=== PATIENT | female | born 1950 | race Caucasian/White ===

== ENCOUNTER 2016-12-07 17:30 | Emergency (ER) | payer OTHER ==
[~2016-12-07] VITALS: Wt 72.1 kg
[2016-12-07] MEDS ORDERED: DIPHTH/TET/ACEL PERTUSS (ADULT) 0.5 ML VIAL IM* ONE (18:00)
[2016-12-07] MEDS ORDERED: CLIN-73 PO (18:35)
[2016-12-07] MEDS ORDERED: IBUP-1542 PO (18:36)
--- NOTE | 2016-12-07 18:46 | ERD ---
ER Documentation Chief Complaint Date/Time DATE: 12/07/16 TIME: 18:40 Chief Complaint RIGHT INDEX FINGER DOG BITE YESTERDAY. BLEEDING CONTROLLED. HPI Patient is a 66-year-old female who presents to the emergency department with dog bite wound to her right index finger. She states that she was playing with her daughter's dog trying to grab the bone out of his mouth when her daughter's dog actually bit her. She believes that her daughter's dog is vaccinated. Patient's daughter's dog does live indoors. The injury occurred yesterday. Patient reports swelling and erythema to her left index finger. Patient denies any fevers, chills, nausea, vomiting, chest pain or shortness of breath or loss of consciousness. Patient does not recall her last tetanus vaccination. ROS All systems reviewed and are negative except as per history of present illness. Medications Home Meds Active Scripts Ibuprofen* (Motrin*) 600 Mg Tab, 600 MG PO Q6, #30 TAB Prov:YADI IYER PA-C 12/07/16 Clindamycin Hcl* (Clindamycin Hcl*) 300 Mg Capsule, 300 MG PO TID for 10 Days, CAP Prov:YADI IYER PA-C 12/07/16 Allergies Allergies: Coded Allergies: Penicillins (Verified Allergy, Unknown, 12/07/16) PMhx/Soc Medical and Surgical Hx: pt denies Medical Hx, pt denies Surgical Hx Physical Exam Vitals Vital Signs Date Time Temp Pulse Resp B/P Pulse Ox O2 Delivery O2 Flow Rate FiO2 12/07/16 17:34 98.4 85 21 165/89 98 Physical Exam GENERAL: Well-developed, well-nourished female. Appears in no acute distress. HEAD: Normocephalic, atraumatic. EYES: Pupils are equally reactive bilaterally. EOMs grossly intact. No conjunctival erythema. ENT: Moist mucous membranes. No uvula deviation. No kissing tonsils. NECK: Supple. No meningismus. Normal range of motion of the neck. LUNG: Clear to auscultation bilaterally. No rhonchi, wheezing, rales or coarse breath sounds. HEART: Regular rate and rhythm. No murmurs, rubs or gallops. EXTREMITIES: Equal pulses bilaterally. No peripheral clubbing, cyanosis or edema. No unilateral leg swelling. NEUROLOGIC: Alert and oriented. Moving all four extremities without any difficulty. Normal speech. Steady gait. SKIN: Normal color. Warm and dry. 1 cm puncture wound noted on the patient's proximal aspect of her right index finger. Erythema and swelling noted over the patient's MCP joint. No lymphatic streaking noted. Decreased range of motion of the patient's first digit secondary to pain however able to bend at DIP and PIP joint. Results 24 hrs Current Medications Medications (Trade) Dose Ordered Sig/Holly Route PRN Reason Start Time Stop Time Status Last Admin Dose Admin Diphtheria/ Tetanus/Acell Pertussis (Adacel) 0.5 ml ONCE ONCE IM* 12/07/16 18:00 12/07/16 18:01 DC 12/07/16 18:10 Procedures/MDM MEDICAL DECISION MAKING: Patient is a 66-year-old female who presents to the emergency department with right index finger pain status post dog bite yesterday. Patient was bit by her daughter's dog. Vital signs were reviewed. Patient is afebrile. Patient was not hypoxic. Patient was hemodynamically stable. Patient's wound was cleansed by agricultural technical officer. The affected area was marked and dated. Patient was given tetanus vaccination here in the emergency department. At this time, the patient's presentation is most consistent with dog bite. Given that patient does have a penicillin allergy, patient will be prescribed clindamycin. Low suspicion for deep space infection or abscess. Low suspicion for flexor tenosynovitis at this time. PRESCRIPTION: Clindamycin, ibuprofen DISCHARGE: At this time, patient is stable for discharge and outpatient management. She was advised to return the emergency department in 2 days for wound recheck. Patient was advised to return sooner if the area of erythema is spreading up her arm. Patient was advised to return sooner if she had any swelling, increased redness, fevers, chills, nausea, vomiting. I have instructed the patient to promptly return to the ER for any new or worsening symptoms including increased pain, fever, nausea, vomiting, weakness or LOC. The patient and/or family expressed understanding of and agreement with this plan. All questions were answered. Home care instructions were provided. Departure Diagnosis: Primary Impression: Dog bite Encounter type: initial encounter Qualified Code: W54.0XXA - Dog bite, initial encounter Condition: Stable Patient Instructions: Dog Bite Referrals: COMM[facility] YOU HAVE RECEIVED A MEDICAL SCREENING EXAM AND THE RESULTS INDICATE THAT YOU DO NOT HAVE A CONDITION THAT REQUIRES URGENT TREATMENT IN THE EMERGENCY DEPARTMENT. FURTHER EVALUATION AND TREATMENT OF YOUR CONDITION CAN WAIT UNTIL YOU ARE SEEN IN YOUR DOCTORS OFFICE WITHIN THE NEXT 1-2 DAYS. IT IS YOUR RESPONSIBILITY TO MAKE AN APPOINTMENT FOR FOLOW-UP CARE. IF YOU HAVE A PRIMARY DOCTOR --you should call your primary doctor and schedule an appointment IF YOU DO NOT HAVE A PRIMARY DOCTOR YOU CAN CALL OUR PHYSICIAN REFERRAL HOTLINE AT IF YOU CAN NOT AFFORD TO SEE A PHYSICIAN YOU CAN CHOSE FROM THE FOLLOWING [facility] [address] [facility] [address] [facility] [facility] [address] [facility] [address] [facility] [facility] [address] [facility]. [facility] [address] [facility]. [facility] YOU HAVE RECEIVED A MEDICAL SCREENING EXAM AND THE RESULTS INDICATE THAT YOU DO NOT HAVE A CONDITION THAT REQUIRES URGENT TREATMENT IN THE EMERGENCY DEPARTMENT. FURTHER EVALUATION AND TREATMENT OF YOUR CONDITION CAN WAIT UNTIL YOU ARE SEEN IN YOUR DOCTORS OFFICE WITHIN THE NEXT 1-2 DAYS. IT IS YOUR RESPONSIBILITY TO MAKE AN APPOINTMENT FOR FOLOW-UP CARE. IF YOU HAVE A PRIMARY DOCTOR --you should call your primary doctor and schedule and appointment IF YOU DO NOT HAVE A PRIMARY DOCTOR YOU CAN CALL OUR PHYSICIAN REFERRAL HOTLINE AT . IF YOU CAN NOT AFFORD TO SEE A PHYSICIAN YOU CAN CHOSE FROM THE FOLLOWING [facility] INSTITUTIONS: [facility] [address] [place] [address] [facility] [address] [place] [address] [facility] [address] [place] [address] Additional Instructions: She advised to return the emergency department 2 days for wound recheck. Patient was advised to return sooner for any worsening swelling, redness, fevers , chills, nausea, vomiting. Patient was advised to take full course of antibiotics. YADI IYER PA-C Dec 07, 2016 18:45 YADI IYER PA-C Dec 07, 2016 18:45
== END 2016-12-07 19:26 | disposition home or self-care (01) ==
LOC: FTE 17:30
DX: S61.250A Open bite of right index finger without damage to nail, initial encounter (principal); W54.0XXA Bitten by dog, initial encounter; Y92.9 Unspecified place or not applicable; Z23 Encounter for immunization
CPT/HCPCS: 90471; 90715; Z7502

== ENCOUNTER 2016-12-10 12:23 | Emergency (ER) | END 2016-12-10 14:55 | disposition home or self-care (01) | DX: Z48.00 Encounter for change or removal of nonsurgical wound dressing (principal) ==

== ENCOUNTER 2019-04-27 11:49 | Emergency (ER) | payer MEDICARE, OTHER ==
[~2019-04-27] VITALS: Ht 154.9 cm; Wt 74.9 kg
[~2019-04-27 11:49] MED LIST: BUTA1CAP38 PO; CEPH-443 PO; CLIN300C10 PO; IBUP-1542 PO; NPH10OT BOTH EARS; SULF1TAB31 PO
[2019-04-27 11:50] VITALS: BP 169/74; PULSE 73; RESP 20; Ht 154.9 cm; Wt 74.9 kg
--- NOTE | 2019-04-27 13:01 | ERD ---
ER Documentation Chief Complaint Chief Complaint HEADACHE SINCE YESTERDAY , LEFT EAR PAIN X 3 WEEKS HPI 68-year-old female presenting with a headache and left ear pain x3 weeks. Patient states that she has a history of a prolactinoma however denies any visual changes or vomiting. She has not taken any medications for her headache and denies any fevers. Denies changes in urination or bowel movement. Denies any dental pain. Medical history is osteoporosis and prolactinoma. Allergy to penicillin and ibuprofen. Social history denies. Surgical history denies ROS All systems reviewed and are negative except as per history of present illness. Medications Home Meds Active Scripts Neomycin/Polymyxin/Hydrocort* (Cortisporin* Otic) 10 Ml Susp, 4 DROP BOTH EARS QID for 7 Days, EA Prov:TAHMINA COONEY PA-C 04/27/19 Ibuprofen* (Motrin*) 600 Mg Tab, 600 MG PO Q6, #30 TAB Prov:YADI IYER PA-C 12/07/16 Clindamycin Hcl* (Clindamycin Hcl*) 300 Mg Capsule, 300 MG PO TID for 10 Days, CAP Prov:YADI IYER PA-C 12/07/16 Allergies Allergies: Coded Allergies: Penicillins (Verified Allergy, Unknown, 12/07/16) PMhx/Soc Hx Alcohol Use: No Hx Substance Use: No Hx Tobacco Use: No Smoking Status: Never smoker FmHx Family History: No diabetes, No coronary disease, No other Physical Exam Vitals Vital Signs Date Temp Pulse Resp B/P (MAP) Pulse Ox O2 O2 Flow FiO2 Time Delivery Rate 04/27/19 97.1 73 20 169/74 98 11:50 (105) Physical Exam GENERAL: The patient is well-appearing, well-nourished, in no acute distress HEENT: Atraumatic. Conjunctivae are pink. Pupils equal, round, and reactive to light. There is no scleral icterus. Tympanic membranes clear bilaterally. Oropharynx clear. Cerumen impaction noted bilaterally CHEST: Clear to auscultation bilaterally. There are no rales, wheezes or rhonchi. HEART: Regular rate and rhythm. No murmurs, clicks, rubs or gallops. ABDOMEN:Soft, nontender and nondistended. Good bowel sounds. No rebound or guarding. No gross peritonitis. No gross organomegaly or masses. EXTREMITIES: Equal pulses bilaterally. There is no peripheral clubbing, cyanosis or edema. No focal swelling or erythema. Full range of motion. NEUROLOGIC: Alert and oriented. Cranial nerves II through XII intact. Motor strength in all 4 extremities with 5 out of 5 strength. Sensation grossly intact. Procedures/MDM ER course: Cerumen removed bilaterally without complication. MDM: 68-year-old female presenting with cerumen impaction and headache. Patient has no visual changes and no vomiting with no neuro deficits on exam so I do not feel a CT scan is indicated at this time. Patient does have a history of prolactinoma however no new associated symptoms the patient is recommended to follow-up in outpatient basis to receive an MRI or further imaging. Patient had cerumen removed in the ER and felt better with resolved ear pain. Patient is discharged with strict ER precautions and told to follow-up with primary care within 1 to 2 days for close evaluation. Patient is told if symptoms change or worsen to return immediately to the ER. All questions answered at discharge Departure Diagnosis: Primary Impression: Cerumen impaction Condition: Stable Patient Instructions: Cerumen Impaction, Home Care Referrals: [facility] YOU HAVE RECEIVED A MEDICAL SCREENING EXAM AND THE RESULTS INDICATE THAT YOU DO NOT HAVE A CONDITION THAT REQUIRES URGENT TREATMENT IN THE EMERGENCY DEPARTMENT. FURTHER EVALUATION AND TREATMENT OF YOUR CONDITION CAN WAIT UNTIL YOU ARE SEEN IN YOUR DOCTORS OFFICE WITHIN THE NEXT 1-2 DAYS. IT IS YOUR RESPONSIBILITY TO MAKE AN APPOINTMENT FOR FOLOW-UP CARE. IF YOU HAVE A PRIMARY DOCTOR --you should call your primary doctor and schedule an appointment IF YOU DO NOT HAVE A PRIMARY DOCTOR YOU CAN CALL OUR PHYSICIAN REFERRAL HOTLINE AT IF YOU CAN NOT AFFORD TO SEE A PHYSICIAN YOU CAN CHOSE FROM THE FOLLOWING [facility] [address] [facility] [address] [facility] [facility] [address] [facility] [facility] [address] [facility]. [facility] [address] [facility]. [facility]. [address] Additional Instructions: FOLLOW UP WITH YOUR PRIMARY CARE PHYSICIAN TOMORROW.Return to this facility if you are not improving as expected. TAHMINA COONEY PA-C Apr 27, 2019 13:01
== END 2019-04-27 13:23 | disposition home or self-care (01) ==
LOC: FTE 11:49
DX: H61.23 Impacted cerumen, bilateral (principal)